=== PATIENT | male | born 1950 | race Caucasian/White ===

== ENCOUNTER 2017-10-31 22:04 | Inpatient (IN) | payer OTHER ==
[~2017-10-31] VITALS: Ht 175.3 cm; Wt 94.8 kg
[~2017-10-31 22:04] MED LIST: ACTOS15 MG PO; ADULT LOW DOSE81 M1 PO; ALEVE220 MG PO; ASPIR 8181 M1 PO; ASPIRIN EC325 MG PO; CRESTOR20 MG PO; CRESTOR5 MG PO; DAILY VITAMIN1 EAC8 PO; DESYREL100 MG PO; EFFIENT10 MG PO; FISH OIL 1,0001 EAC7 PO; GABAPENTIN300 MG PO; GLIPIZIDE ER2.5 MG PO; IRON325 M1 PO; LISINOPRIL5 MG PO; LO-DOSE ASPIRIN81 M1 PO; LOPRESSOR25 MG PO; LUNESTA3 MG PO; METFORMIN HCL1000 MG PO; METFORMIN HCL500 MG PO; MULTIVITAMIN1 EAC1 PO; Metformin HCl PO; Multivitamin PO; PRILOSEC40 MG PO; REQUIP1 MG PO; SERTRALINE HCL100 MG PO; SIMVASTATIN40 M1 PO; Sertraline HCl PO; Simvastatin PO; TRAMADOL HCL50 MG PO; VENTOLIN HFA18 GM IH; ZANTAC75 M1 PO; ZESTRIL,PRINIVIL5 MG PO; Zestril,Prinivil PO
[2017-11-01 07:49] VITALS: BP 125/65
[2017-11-01 14:08] VITALS: BP 114/61
[2017-11-01 18:21] VITALS: BP 121/63
[2017-11-01 19:52] VITALS: BP 138/71
[2017-11-02 00:10] VITALS: BP 130/71
[2017-11-02 04:14] VITALS: BP 120/67
[2017-11-02 05:51] LABS: HEMATOCRIT 33.8 % (38.0-50.0); MCV 92.1 FL (86-99)
[2017-11-02 05:52] LABS: HEMOGLOBIN 11.2 G/DL (12.5-16.6)
[2017-11-02 06:12] LABS: CHLORIDE 101 MEQ/L (99-109); CREATININE 1.1 MG/DL (0.6-1.3); GFR ESTIMATE (CALCULATED) > 59 mL/min/ (58.99-99999); GLUCOSE 150 mg/dL (70-99); POTASSIUM 5.3 MEQ/L (3.7-5.4); SODIUM 135 MEQ/L (136-147); UREA NITROGEN (BUN) 25 mg/dL (9-23)
[2017-11-02 08:06] VITALS: BP 110/64
[2017-11-02 12:03] VITALS: BP 121/60
[2017-11-02 15:29] VITALS: BP 137/74
[2017-11-02 19:43] VITALS: BP 154/70
[2017-11-03 00:13] VITALS: BP 129/65
[2017-11-03 04:17] VITALS: BP 128/67
[2017-11-03 05:52] LABS: HEMOGLOBIN 10.7 G/DL (12.5-16.6); MCV 90.7 FL (86-99)
[2017-11-03 08:17] VITALS: BP 139/65
[2017-11-03] MEDS ORDERED: OXYCODONE HCL5 MG PO (08:45)
[2017-11-03] MEDS ORDERED: CELECOXIB200 MG PO (08:45)
[2017-11-03] MEDS ORDERED: ELIQUIS2.5 MG PO (08:45)
[2017-11-03 12:14] VITALS: BP 108/54
== END 2017-11-03 14:18 | DRG 470 ==
LOC: ENRESERV 22:04 → 2SOUTH 11-01 06:57 → 3WEST 11-01 13:30 → 2SOUTH 11-01 16:03 → 3WEST 11-03 14:18
PROVIDERS: Orthopaedic Surgery
PROC: 0SRC0J9 Replacement of Right Knee Joint with Synthetic Substitute, Cemented, Open Approach (ICD-10-PCS; principal; 2017-11-01)
DX: M17.11 Unilateral primary osteoarthritis, right knee (principal); E11.9 Type 2 diabetes mellitus without complications; Z79.4 Long term (current) use of insulin
CPT/HCPCS: 80048; 82948; 85014; 85018; C1713; J0131; J0690; J1885; J2250; J2405; J2795; J7050; J7120

== ENCOUNTER 2018-01-29 21:58 | Inpatient (IN) | payer OTHER ==
[~2018-01-29] VITALS: Ht 175.3 cm; Wt 89.8 kg
[~2018-01-29 21:58] MED LIST changes: +CELECOXIB200 MG PO; +ELIQUIS2.5 MG PO; +INDOCIN50 MG PO; +LITE COAT ASPI325 M1 PO; +MUCINEX D ER T1 EACH PO; +OXYCODONE HCL5 MG PO
[2018-01-30 13:03] VITALS: BP 126/67
[2018-01-30 19:24] VITALS: BP 124/70
[2018-01-30 21:25] VITALS: BP 127/65
[2018-01-31 00:23] VITALS: BP 105/58
[2018-01-31 04:33] VITALS: BP 119/65
[2018-01-31 06:16] LABS: HEMATOCRIT 39.3 % (38.0-50.0); HEMOGLOBIN 12.4 G/DL (12.5-16.6)
[2018-01-31 06:28] LABS: CHLORIDE 102 MEQ/L (99-109); CREATININE 1.1 MG/DL (0.6-1.3); GFR ESTIMATE (CALCULATED) > 59 mL/min/ (58.99-99999); GLUCOSE 127 mg/dL (70-99); POTASSIUM 5.4 MEQ/L (3.7-5.4); SODIUM 137 MEQ/L (136-147); UREA NITROGEN (BUN) 20 mg/dL (9-23)
[2018-01-31 08:00] VITALS: BP 126/64
[2018-01-31] MEDS ORDERED: ELIQUIS2.5 MG PO (08:17)
[2018-01-31] MEDS ORDERED: CELECOXIB200 MG PO (08:17)
[2018-01-31] MEDS ORDERED: OXYCODONE HCL5 MG PO (08:17)
[2018-01-31 11:47] VITALS: BP 104/57
== END 2018-01-31 13:34 | disposition home or self-care (01) | DRG 470 ==
LOC: ENRESERV 21:58 → 2SOUTH 01-30 11:36 → 3WEST 01-30 19:03
PROVIDERS: Orthopaedic Surgery
PROC: 0SRD0J9 Replacement of Left Knee Joint with Synthetic Substitute, Cemented, Open Approach (ICD-10-PCS; principal; 2018-01-30)
DX: M17.12 Unilateral primary osteoarthritis, left knee (principal); Z96.651 Presence of right artificial knee joint; I11.9 Hypertensive heart disease without heart failure; E78.2 Mixed hyperlipidemia; E11.9 Type 2 diabetes mellitus without complications; I25.2 Old myocardial infarction; I25.10 Atherosclerotic heart disease of native coronary artery without angina pectoris; G25.81 Restless legs syndrome; G47.33 Obstructive sleep apnea (adult) (pediatric); Z87.891 Personal history of nicotine dependence; Z95.5 Presence of coronary angioplasty implant and graft; Z83.3 Family history of diabetes mellitus; Z82.3 Family history of stroke; Z90.49 Acquired absence of other specified parts of digestive tract; Z79.84 Long term (current) use of oral hypoglycemic drugs; Z99.89 Dependence on other enabling machines and devices; Z80.0 Family history of malignant neoplasm of digestive organs
CPT/HCPCS: 80048; 82948; 85014; 85018; 94799; C1713; J0131; J0690; J1885; J2250; J2405; J2795; J7030; J7050; S0020